=== PATIENT | male | born 1990 | race Caucasian/White ===

== ENCOUNTER 2018-04-30 10:26 | Emergency (ER) | payer BC ==
--- NOTE | 2018-04-30 11:04 | EDM.PDOC ---
ED HPI GENERAL MEDICAL PROBLEM - General Chief Complaint: ENT Problem Stated Complaint: CHEST TIGHTNESS Time Seen by Provider: 04/30/18 10:45 Source of Information: Reports: Patient History Limitations: Reports: No Limitations - History of Present Illness INITIAL COMMENTS - FREE TEXT/NARRATIVE: Presents reporting a one month history of cough. The patient states that he did have an earache and sinusitis about a month ago was prescribed amoxicillin. Those problems have since resolved but the cough continues. He does not smoke. He did not have a flu shot this year. He did run a fever over the weekend but has been otherwise asymptomatic. He is otherwise healthy without chronic medical problems. Throat Pain Score (Numeric/FACES): 4 - Related Data Allergies Allergy/AdvReac Type Severity Reaction Status Date / Time No Known Allergies Allergy Verified 04/30/18 10:38 Home Meds: Home Meds Budesonide [Pulmicort Flexhaler] 2 puff IH BID 7 Days #1 inhaler 04/30/18 [Rx] guaiFENesin/Codeine Phosphate [Cheratussin AC Syrup] 10 ml PO Q6HR PRN #236 liquid 04/30/18 [Rx] predniSONE [Prednisone] 2 tab PO DAILY #10 tablet 04/30/18 [Rx] Past Medical History - Past Health History Medical/Surgical History: Denies Medical/Surgical History - Infectious Disease History Infectious Disease History: Reports: Chicken Pox Social & Family History - Family History Family Medical History: Noncontributory - Tobacco Use Smoking Status *Q: Never Smoker - Caffeine Use Caffeine Use: Reports: Coffee - Recreational Drug Use Recreational Drug Use: No ED ROS ENT - Review of Systems Review Of Systems: ROS reveals no pertinent complaints other than HPI. ED EXAM, ENT - Physical Exam Exam: See Below Exam Limited By: No Limitations General Appearance: Alert, No Apparent Distress Ears: Normal External Exam, Normal TMs Nose: Normal Inspection Mouth/Throat: Normal Inspection, Normal Oropharynx Head: Atraumatic, Normocephalic Neck: Normal Inspection Respiratory/Chest: No Respiratory Distress Cardiovascular: Normal Peripheral Pulses, Regular Rate, Rhythm, No JVD GI/Abdominal: Soft Neurological: Alert, Oriented Psychiatric: Normal Affect, Normal Mood Skin: Warm, Dry, Intact, Normal Color, No Rash Lymphatic: No Adenopathy Course - Vital Signs Last Recorded V/S: Last Vital Signs Temp 36.8 C 04/30/18 10:38 Pulse 78 04/30/18 10:38 Resp 16 04/30/18 10:38 BP 141/84 H 04/30/18 10:38 Pulse Ox 97 04/30/18 10:38 - Orders/Labs/Meds Orders: Active Orders 24 hr Category Date Time Status INFLUENZA A+B AG SCREEN [RM] Stat Lab 04/30/18 10:57 Ordered Departure - Departure Time of Disposition: 11:04 Disposition: Home, Self-Care 01 Condition: Good Clinical Impression: Bronchitis - Discharge Information Referrals: PCP,None [Primary Care Provider] - [facility] [Outside] [facility] [Outside] Additional Instructions: 1. Take your steroid today and then daily for the next 4 days 2. Pulmicort inhaler 3 times a day until symptoms resolve 3. Cough syrup before bed for cough and sleep. No driving or operating machinery - My Orders Last 24 Hours: My Active Orders 04/30/18 10:57 INFLUENZA A+B AG SCREEN [RM] Stat - Assessment/Plan Last 24 Hours: My Active Orders 04/30/18 10:57 INFLUENZA A+B AG SCREEN [RM] Stat
== END 2018-04-30 12:10 | disposition home or self-care (01) ==
LOC: MW.ED 10:26
DX: J40 Bronchitis, not specified as acute or chronic (principal)
CPT/HCPCS: 87804; 99283

== ENCOUNTER 2021-07-02 16:43 | Emergency (ER) | payer BC | END 2021-07-02 17:06 | LOC: MW.ED 16:43 | DX: Z00.8 Encounter for other general examination (principal) | CPT/HCPCS: 99283 ==

== ENCOUNTER 2022-10-27 07:23 | Day surgery (SDC) | payer MEDICAID ==
[~2022-10-27 07:23] MED LIST: Lactated Ringers 1,000 ML IV SCH
[2022-10-27] MEDS ORDERED: propofoL 50 ML ONE (07:36)
[2022-10-27] MEDS ORDERED: Propofol 200 MG/20 ML SDV ONE (08:54)
[2022-10-27] MEDS ORDERED: Lactated Ringers 1,000 ML IV SCH (09:15)
== END 2022-10-27 09:43 | disposition home or self-care (01) ==
LOC: MW.SDS 07:23
PROVIDERS: ATTEND Surgery
DX: K52.9 Noninfective gastroenteritis and colitis, unspecified (principal); K62.89 Other specified diseases of anus and rectum; M10.9 Gout, unspecified; R73.03 Prediabetes; E66.9 Obesity, unspecified; Z79.899 Other long term (current) drug therapy; Z68.34 Body mass index [BMI] 34.0-34.9, adult; Z87.09 Personal history of other diseases of the respiratory system; Z83.3 Family history of diabetes mellitus
CPT/HCPCS: 45380; 82947; J2704; J7120; 00811